=== PATIENT | male | born 1960 | race Asian ===

== ENCOUNTER → 2017-01-12 | Outpatient (CLI) | payer BC ==
--- NOTE | ~2017-01-12 | CR63 ---
[facility] A Service of [facility] RADIOLOGY TEXT RESULTS PATIENT: GRANT SMITH LOCATION: [facility] : 64 UNIT #: [id number] AGE: [address]: Hannah Fitzpatrick MD SEX: M ORDER DR: [id number] [facility] [address] [place], [place] [address] [id number] O MR#: [id number] Acc #: [id number] NAME: GRANT SMITH : 1960 SEX: M STUDY DATE/TIME: 01/12/2017 10:34 UNIT: [facility] ROOM: STUDY DESCRIPTION: CR Chest 2 View Attending Physician: Hannah Fitzpatrick M.D. Referring Physician: Hannah Fitzpatrick M.D. Ordering Physician: Hannah Fitzpatrick M.D. Primary Care Physician: No Primary Care Physician MEDICAL IMAGING REPORT This report is preliminary unless electronic signature is present EXAM Chest, 01/12/2017, [facility]. HISTORY 56-year-old male intermittent cough past 2 months. Long smoking history. History of diabetes. COMPARISON Chest none. FINDINGS PA and lateral chest views show normal cardiac size and configuration. Hilar structures and mediastinal contours are preserved. Bilateral lungs are expanded and clear. Costophrenic angles are preserved. IMPRESSION Negative chest. Dictated by... Pop Rios M.D. THIS IS AN ELECTRONICALLY VERIFIED REPORT Pop Rios M.D. at 01/15/2017 8:07 AM NIKITA/lucy TD: 01/12/2017 16:27 JOB #: [id number] MEDICAL IMAGING REPORT Page 1 of 1 COPY
== END | disposition home or self-care (01) ==
LOC: CRAD 10:03
DX: R05 Cough (principal)
CPT/HCPCS: 71020